=== PATIENT | female | born 1980 | race Caucasian/White ===

== ENCOUNTER → 2024-04-04 09:15 | Outpatient (REF) | payer OTHER, SELFPAY | LOC: HWRAD 09:15 | PROVIDERS: ATTENDING PHYSICIAN Nurse Practitioner | DX: N39.0 Urinary tract infection, site not specified (principal); R35.0 Frequency of micturition; R31.29 Other microscopic hematuria | CPT/HCPCS: 76770; 76856 ==

== ENCOUNTER → 2024-11-04 13:45 | Outpatient (REF) | payer OTHER, SELFPAY | LOC: WDC 13:45 | PROVIDERS: ATTENDING PHYSICIAN Family Medicine | DX: Z12.39 Encounter for other screening for malignant neoplasm of breast (principal); E04.1 Nontoxic single thyroid nodule; Z12.31 Encounter for screening mammogram for malignant neoplasm of breast | CPT/HCPCS: 76536; 77063; 77067 ==

== ENCOUNTER → 2024-11-10 08:56 | Outpatient (REF) | payer OTHER, SELFPAY | LOC: WDC 08:56 | PROVIDERS: ATTENDING PHYSICIAN Family Medicine | DX: R92.8 Other abnormal and inconclusive findings on diagnostic imaging of breast (principal) | CPT/HCPCS: 76642 ==